=== PATIENT | female | born 1990 | race Caucasian/White ===

== ENCOUNTER 2016-10-11 15:02 | Emergency (ER) | payer MEDICAID ==
[~2016-10-11] VITALS: Ht 154.9 cm; Wt 61.2 kg
[~2016-10-11 15:02] MED LIST: BEN10 PO; ELA25 PO; MAC100 PO; OMEPRAZOLE DR20 M1 PO; PREVACID15 MG PO; ZOFRAN ODT4 MG SL
[2016-10-11 16:20] LABS: CARBON DIOXIDE 23.1 mmol/L (21-32); CHLORIDE SERUM 102 mmol/L (98-107); CREATININE SERUM 0.8 mg/dL (0.6-1.0); GFR1 > 60 mL/min; GLUCOSE SERUM 116 mg/dL (74-106); POTASSIUM SERUM 3.4 mmol/L (3.5-5.1); SODIUM SERUM 140 mmol/L (136-145)
[2016-10-11 16:25] LABS: ALBUMIN 4.5 g/dL (3.4-5.0); ALKALINE PHOSPHATASE 86 U/L (46-116); ALT/SGPT 19 U/L (14-59); AST/SGOT 18 U/L (15-37); BILIRUBIN TOTAL 0.5 mg/dL (0.20-1.00); TOTAL PROTEIN, SERUM 7.5 g/dL (6.4-8.2)
[2016-10-11 16:28] LABS: BASOPHIL % 0.5 % (0-2); PLATELET COUNT 269 x10^3mcL (130-400); RED CELL DISTRIBUTION WIDTH 12.2 % (11.5-14.5)
[2016-10-11 23:09] VITALS: BP 108/62
== END 2016-10-11 23:09 | disposition home or self-care (01) ==
LOC: ED 15:02
DX: K21.9 Gastro-esophageal reflux disease without esophagitis (principal); Z88.5 Allergy status to narcotic agent
CPT/HCPCS: C9113; J2270; J2405; J2765; J3010; J3490

== ENCOUNTER 2016-10-30 20:00 | Emergency (ER) | payer MEDICAID ==
[2016-10-30 21:54] VITALS: BP 135/82
== END 2016-10-30 21:54 | disposition home or self-care (01) ==
LOC: ED 20:00
DX: R10.13 Epigastric pain (principal); R11.2 Nausea with vomiting, unspecified; Z88.8 Allergy status to other drugs, medicaments and biological substances; Z87.19 Personal history of other diseases of the digestive system
CPT/HCPCS: J1885; J2270; Q0162

== ENCOUNTER 2016-11-02 09:42 | Emergency (ER) | payer MEDICAID ==
[~2016-11-02] VITALS: Ht 154.9 cm; Wt 57.6 kg
[2016-11-02 11:02] LABS: BASOPHIL % 0.4 % (0-2); CALCIUM 8.5 mg/dL (8.5-10.1); CARBON DIOXIDE 29.3 mmol/L (21-32); CHLORIDE SERUM 105 mmol/L (98-107); CREATININE SERUM 0.7 mg/dL (0.6-1.0); GFR1 > 60 mL/min; GLUCOSE SERUM 101 mg/dL (74-106); PLATELET COUNT 285 x10^3mcL (130-400); POTASSIUM SERUM 3.2 mmol/L (3.5-5.1); RED CELL DISTRIBUTION WIDTH 13.1 % (11.5-14.5); SODIUM SERUM 141 mmol/L (136-145)
[2016-11-02 11:12] LABS: ALBUMIN 4.2 g/dL (3.4-5.0); ALKALINE PHOSPHATASE 58 U/L (46-116); ALT/SGPT 31 U/L (14-59); AMYLASE 67 U/L (25-115); AST/SGOT 18 U/L (15-37); BILIRUBIN TOTAL 0.54 mg/dL (0.20-1.00); LIPASE 120 IU/L (73-393); TOTAL PROTEIN, SERUM 6.8 g/dL (6.4-8.2)
[2016-11-02 12:08] VITALS: BP 112/52
== END 2016-11-02 12:08 | disposition home or self-care (01) ==
LOC: ED 09:42
PROVIDERS: Emergency Medicine
DX: R11.10 Vomiting, unspecified (principal); R10.9 Unspecified abdominal pain
CPT/HCPCS: 83880; J1630

== ENCOUNTER 2016-11-24 10:23 | Emergency (ER) | payer MEDICAID ==
[2016-11-24 11:48] LABS: BASOPHIL % 0.4 % (0-2); PLATELET COUNT 296 x10^3mcL (130-400); RED CELL DISTRIBUTION WIDTH 14.2 % (11.5-14.5)
[2016-11-24 12:00] LABS: CARBON DIOXIDE 27.2 mmol/L (21-32); CHLORIDE SERUM 105 mmol/L (98-107); CREATININE SERUM 0.6 mg/dL (0.6-1.0); GFR1 > 60 mL/min; GLUCOSE SERUM 104 mg/dL (74-106); POTASSIUM SERUM 3.7 mmol/L (3.5-5.1); SODIUM SERUM 140 mmol/L (136-145)
[2016-11-24 12:02] LABS: ALBUMIN 4.2 g/dL (3.4-5.0); ALKALINE PHOSPHATASE 73 U/L (46-116); ALT/SGPT 17 U/L (14-59); AST/SGOT 17 U/L (15-37); BILIRUBIN TOTAL 0.31 mg/dL (0.20-1.00); LIPASE 119 IU/L (73-393); TOTAL PROTEIN, SERUM 7.2 g/dL (6.4-8.2)
[2016-11-24 13:58] VITALS: BP 117/62
== END 2016-11-24 13:58 | disposition home or self-care (01) ==
LOC: ED 10:23
PROVIDERS: Emergency Medicine
DX: K29.00 Acute gastritis without bleeding (principal); R03.0 Elevated blood-pressure reading, without diagnosis of hypertension; F12.90 Cannabis use, unspecified, uncomplicated; Z88.5 Allergy status to narcotic agent
CPT/HCPCS: J1200; J1885; J2060; J2405; J2765; J7030

== ENCOUNTER 2016-11-24 14:14 | Inpatient (IN) | payer MEDICAID ==
[~2016-11-24] VITALS: Ht 154.9 cm; Wt 51.7 kg
[2016-11-24 16:38] VITALS: BP 119/69
[2016-11-24 18:07] LABS: BASOPHIL % 1.5 % (0-2); PLATELET COUNT 277 x10^3mcL (130-400); RED CELL DISTRIBUTION WIDTH 14.5 % (11.5-14.5)
[2016-11-24 18:13] LABS: ALBUMIN 3.6 g/dL (3.4-5.0); ALKALINE PHOSPHATASE 65 U/L (46-116); ALT/SGPT 16 U/L (14-59); AST/SGOT 12 U/L (15-37); BILIRUBIN TOTAL 0.3 mg/dL (0.20-1.00); CARBON DIOXIDE 26.5 mmol/L (21-32); CHLORIDE SERUM 102 mmol/L (98-107); CREATININE SERUM 0.6 mg/dL (0.6-1.0); GFR1 > 60 mL/min; GLUCOSE SERUM 99 mg/dL (74-106); MAGNESIUM 1.6 mg/dL (1.8-2.4); POTASSIUM SERUM 3.5 mmol/L (3.5-5.1); SODIUM SERUM 140 mmol/L (136-145); TOTAL PROTEIN, SERUM 6.1 g/dL (6.4-8.2)
[2016-11-24 21:00] VITALS: BP 108/57
[2016-11-25 05:19] VITALS: BP 112/84
[2016-11-25 06:27] LABS: BASOPHIL % 0.5 % (0-2); PLATELET COUNT 239 x10^3mcL (130-400)
[2016-11-25 06:49] LABS: CALCIUM 8.4 mg/dL (8.5-10.1); CARBON DIOXIDE 25.6 mmol/L (21-32); CHLORIDE SERUM 107 mmol/L (98-107); CREATININE SERUM 0.5 mg/dL (0.6-1.0); GFR1 > 60 mL/min; GLUCOSE SERUM 77 mg/dL (74-106); MAGNESIUM 2.1 mg/dL (1.8-2.4); POTASSIUM SERUM 3.5 mmol/L (3.5-5.1); SODIUM SERUM 141 mmol/L (136-145)
[2016-11-25 06:58] LABS: RED CELL DISTRIBUTION WIDTH 14.8 % (11.5-14.5)
[2016-11-25 07:50] VITALS: BP 113/68
[2016-11-25 12:00] VITALS: BP 129/75
[2016-11-25 17:07] LABS: UA SPECIFIC GRAVITY >=1.030 (1.005-1.035); microscopic required? YES; urine erythrocyte TRACE (NEGATIVE)
[2016-11-25 17:26] LABS: AMPHETAMINE QUAL UR NONE DETECTED (NEG <=1000)
[2016-11-25 18:56] VITALS: BP 134/78
[2016-11-25 22:20] VITALS: BP 117/69
[2016-11-26 06:10] VITALS: BP 119/61
[2016-11-26 08:00] VITALS: BP 102/66
[2016-11-26] MEDS ORDERED: BUS5 PO (12:03)
[2016-11-26 12:45] VITALS: BP 102/66
== END 2016-11-26 15:14 | disposition home or self-care (01) | DRG 254 ==
LOC: ED 14:14 → DU 15:03 → MU 15:03 → DU 15:03 → MU 11-25 06:52
PROVIDERS: ADMIT Family Medicine
DX: K64.8 Other hemorrhoids (principal); N17.0 Acute kidney failure with tubular necrosis; E83.42 Hypomagnesemia; K59.00 Constipation, unspecified; F12.288 Cannabis dependence with other cannabis-induced disorder; T40.7X1A Poisoning by cannabis (derivatives), accidental (unintentional), initial encounter; R11.2 Nausea with vomiting, unspecified; R10.13 Epigastric pain; N83.201 Unspecified ovarian cyst, right side; F41.1 Generalized anxiety disorder; Z68.21 Body mass index [BMI] 21.0-21.9, adult; Z89.022 Acquired absence of left finger(s); Y92.009 Unspecified place in unspecified non-institutional (private) residence as the place of occurrence of the external cause
CPT/HCPCS: J1885; J2270; J2405; J3010; J3475; J7030; Q0092; Q9967

== ENCOUNTER 2016-12-01 08:59 | Emergency (ER) | payer MEDICAID ==
[~2016-12-01 08:59] MED LIST changes: +BUS5 PO
[2016-12-01 10:19] LABS: PLATELET COUNT 241 x10^3mcL (130-400); RED CELL DISTRIBUTION WIDTH 14.3 % (11.5-14.5)
[2016-12-01 10:23] LABS: BASOPHIL % 0 % (0-2); CALCIUM 8.8 mg/dL (8.5-10.1); CARBON DIOXIDE 27.5 mmol/L (21-32); CHLORIDE SERUM 106 mmol/L (98-107); CREATININE SERUM 0.6 mg/dL (0.6-1.0); GFR1 > 60 mL/min; GLUCOSE SERUM 98 mg/dL (74-106); POTASSIUM SERUM 3.6 mmol/L (3.5-5.1); SODIUM SERUM 142 mmol/L (136-145)
[2016-12-01 10:27] LABS: ALKALINE PHOSPHATASE 61 U/L (46-116); ALT/SGPT 19 U/L (14-59); AST/SGOT 10 U/L (15-37); LIPASE 86 IU/L (73-393); TOTAL PROTEIN, SERUM 6.8 g/dL (6.4-8.2)
[2016-12-01 12:05] VITALS: BP 112/68
== END 2016-12-01 12:05 | disposition home or self-care (01) ==
LOC: ED 08:59
PROVIDERS: Emergency Medicine
DX: R10.12 Left upper quadrant pain (principal); Z88.8 Allergy status to other drugs, medicaments and biological substances; Z87.19 Personal history of other diseases of the digestive system
CPT/HCPCS: J1885; J2270

== ENCOUNTER 2016-12-02 10:34 | Emergency (ER) | payer MEDICAID ==
[~2016-12-02] VITALS: Ht 154.9 cm; Wt 58.6 kg
[2016-12-02 11:50] LABS: BASOPHIL % 0.9 % (0-2); PLATELET COUNT 258 x10^3mcL (130-400); RED CELL DISTRIBUTION WIDTH 14.1 % (11.5-14.5)
[2016-12-02 12:17] LABS: CALCIUM 9.1 mg/dL (8.5-10.1); CARBON DIOXIDE 26.3 mmol/L (21-32); CHLORIDE SERUM 102 mmol/L (98-107); CREATININE SERUM 0.7 mg/dL (0.6-1.0); GFR1 > 60 mL/min; GLUCOSE SERUM 89 mg/dL (74-106); POTASSIUM SERUM 3.5 mmol/L (3.5-5.1); SODIUM SERUM 139 mmol/L (136-145)
[2016-12-02 12:18] LABS: ALBUMIN 4.4 g/dL (3.4-5.0); ALKALINE PHOSPHATASE 66 U/L (46-116); ALT/SGPT 19 U/L (14-59); AST/SGOT 13 U/L (15-37); BILIRUBIN TOTAL 0.54 mg/dL (0.20-1.00); LIPASE 74 IU/L (73-393); TOTAL PROTEIN, SERUM 7.3 g/dL (6.4-8.2)
[2016-12-02 14:06] LABS: AMPHETAMINE QUAL UR NONE DETECTED (NEG <=1000)
[2016-12-02 14:30] VITALS: BP 117/88
== END 2016-12-02 14:30 | disposition home or self-care (01) ==
LOC: ED 10:34
PROVIDERS: Emergency Medicine
DX: G89.29 Other chronic pain (principal); R10.9 Unspecified abdominal pain; R11.2 Nausea with vomiting, unspecified; Z88.8 Allergy status to other drugs, medicaments and biological substances
CPT/HCPCS: J0500; J1885; J2060; J2765; J7030

== ENCOUNTER 2016-12-08 07:42 | Emergency (ER) | payer MEDICAID ==
[~2016-12-08] VITALS: Ht 66 cm; Wt 57.6 kg
[2016-12-08 09:14] LABS: BASOPHIL % 0.8 % (0-2); PLATELET COUNT 240 x10^3mcL (130-400); RED CELL DISTRIBUTION WIDTH 13.9 % (11.5-14.5)
[2016-12-08 09:29] LABS: CALCIUM 8.6 mg/dL (8.5-10.1); CHLORIDE SERUM 106 mmol/L (98-107); CREATININE SERUM 0.6 mg/dL (0.6-1.0); GFR1 > 60 mL/min; GLUCOSE SERUM 93 mg/dL (74-106); POTASSIUM SERUM 3.8 mmol/L (3.5-5.1); SODIUM SERUM 140 mmol/L (136-145)
[2016-12-08 09:33] LABS: ALBUMIN 4.2 g/dL (3.4-5.0); ALKALINE PHOSPHATASE 59 U/L (46-116); ALT/SGPT 19 U/L (14-59); AST/SGOT 12 U/L (15-37); BILIRUBIN TOTAL 0.53 mg/dL (0.20-1.00); LIPASE 173 IU/L (73-393); TOTAL PROTEIN, SERUM 6.9 g/dL (6.4-8.2)
[2016-12-08 12:21] VITALS: BP 119/78
== END 2016-12-08 12:21 | disposition home or self-care (01) ==
LOC: ED 07:42
PROVIDERS: Specialist
DX: R10.2 Pelvic and perineal pain (principal)
CPT/HCPCS: J1170; J1885; J2405; J3010; J7030

== ENCOUNTER 2017-02-04 18:54 | Emergency (ER) | payer MEDICAID ==
[2017-02-04 21:06] LABS: BASOPHIL % 0.3 % (0-2); PLATELET COUNT 230 x10^3mcL (130-400); RED CELL DISTRIBUTION WIDTH 12.5 % (11.5-14.5)
[2017-02-04 21:21] LABS: ALBUMIN 3.6 g/dL (3.4-5.0); ALKALINE PHOSPHATASE 61 U/L (46-116); ALT/SGPT 36 U/L (14-59); AST/SGOT 57 U/L (15-37); BILIRUBIN TOTAL 0.36 mg/dL (0.20-1.00); CARBON DIOXIDE 22.4 mmol/L (21-32); CHLORIDE SERUM 105 mmol/L (98-107); CREATININE SERUM 0.8 mg/dL (0.6-1.0); GFR1 > 60 mL/min; GLUCOSE SERUM 102 mg/dL (74-106); LIPASE 82 IU/L (73-393); MAGNESIUM 1.8 mg/dL (1.8-2.4); SODIUM SERUM 142 mmol/L (136-145)
[2017-02-04 21:22] LABS: TOTAL PROTEIN, SERUM 6.1 g/dL (6.4-8.2)
[2017-02-04 21:24] LABS: POTASSIUM SERUM 2.9 mmol/L (3.5-5.1)
[2017-02-05 00:34] LABS: AMPHETAMINE QUAL UR NONE DETECTED (NEG <=1000)
[2017-02-05 01:16] VITALS: BP 125/69
== END 2017-02-05 01:17 | disposition home or self-care (01) ==
LOC: ED 18:54
PROVIDERS: Emergency Medicine
DX: F12.129 Cannabis abuse with intoxication, unspecified (principal); R11.10 Vomiting, unspecified; F41.9 Anxiety disorder, unspecified; F32.9 Major depressive disorder, single episode, unspecified; Z88.5 Allergy status to narcotic agent
CPT/HCPCS: G0480; J1630; J1885; J2060; J2270; J7030; Q0162

== ENCOUNTER 2017-02-06 08:18 | Emergency (ER) | payer MEDICAID ==
[~2017-02-06] VITALS: Ht 154.9 cm; Wt 54.0 kg
[2017-02-06 10:25] VITALS: BP 112/69
== END 2017-02-06 10:25 | disposition home or self-care (01) ==
LOC: ED 08:18
DX: R10.84 Generalized abdominal pain (principal); R11.2 Nausea with vomiting, unspecified; F12.929 Cannabis use, unspecified with intoxication, unspecified; R68.83 Chills (without fever); R30.0 Dysuria; R39.15 Urgency of urination; R35.0 Frequency of micturition; Z87.19 Personal history of other diseases of the digestive system
CPT/HCPCS: J1630; J1885; Q0162